=== PATIENT | female | born 1985 | race Caucasian/White ===

== ENCOUNTER 2023-09-28 20:21 | Observation (INO) | payer OTHER, SELFPAY ==
[2023-09-28 20:49] VITALS: BP 118/76; PULSE 96
[2023-09-28 20:55] VITALS: TEMP 37
[2023-09-28 21:00] VITALS: BP 119/70; PULSE 90
[2023-09-28 21:07] LABS: Appearance Urine Cloudy (Clear); Bacteria Urine 2+ /hpf; Bilirubin Urine Negative (Negative); Blood Urine Negative (Negative); Color Urine Yellow (Yellow); Glucose Urine UA 1+ mg/dL (Negative); Ketones Urine 2+ mg/dL (Negative); Leukocyte Esterase Ur Trace LEU/UL (Negative); Nitrate Urine Negative (Negative); Non Pathogenic Casts 0-2; Protein Urine Negative (Negative); RBC Urine 0-2 /hpf (0-2); Specific Grav Ur 1.013 (1.001-1.035); Squamous Epithelial Cell Urine Few /hpf (Few); Urobilinogen Urine 0.2 mg/dL (<2.0); pH Urine 5.5 (5.0-9.0)
[2023-09-28 21:08] LABS: Add Urine Microscopic? YES
[2023-09-28 21:15] VITALS: BP 118/77; PULSE 94
[2023-09-28 21:30] VITALS: BP 120/75; PULSE 93
[2023-09-28 21:34] VITALS: BMI 30.4
--- NOTE | 2023-09-28 21:34 | OBADM ---
This patient, Alejo Rosario, admitted to the OB room [facility] Post [facility] for observation. Patient/family oriented to hospital policies and general routines including ID bracelet, bed and alarms, visiting hours, pain management, procedures, bathroom and other care routines, personal items, smoking policy, room service/diet, and visiting hours. Patient/Family are encouraged to report perceived risks to care and to ask questions if they do not understand what they are told or what they should do.
[2023-09-28 21:45] VITALS: BP 103/62; PULSE 97
[2023-09-28] MEDS: NITROFURANTOIN MONOHYD MACROCR 100 MG CAP PO (21:50)
--- NOTE | 2023-09-28 23:52 | PC.NURSE ---
2152 BASELINE 135, MODERATE VARIABILITY, +ACCELS, NO DECELS UTERINE IRRITABILITY NOTED.
--- NOTE | 2023-10-21 10:14 | PM.OBTRLD ---
OB - Triage/Final Diagnosis Visit Information Comments/Additional reasons for admission: I have assessed the risk for this patient, Alejo Rosario, and determined that she would benefit from observation care. Evaluation Laboratory results: Laboratory Tests 09/28/23 20:51 Urine Color Yellow Urine Appearance Cloudy H Urine pH 5.5 Ur Specific Jackman 1.013 Urine Protein Negative Urine Glucose (UA) 1+ H Urine Ketones 2+ H Ur Blood (Man) Negative Urine Nitrate Negative Urine Bilirubin Negative Urine Urobilinogen 0.2 Leukocyte Esterase Rfl Trace H Urine RBC 0-2 Urine WBC 11-20 H Ur Squamous Epith Cells Few Urine Bacteria 2+ H Urine Casts 0-2 Final Diagnosis (1) Abdominal pain: Code(s): R10.9 - Unspecified abdominal pain Status: Acute
== END 2023-09-28 21:56 ==
PROVIDERS: Admitting Provider Obstetrics & Gynecology; PCP Internal Medicine; Visit Provider Obstetrics & Gynecology
DX: O26.893 Other specified pregnancy related conditions, third trimester (principal); R10.9 Unspecified abdominal pain; Z3A.33 33 weeks gestation of pregnancy
CPT/HCPCS: 81001; 87086; A9270; G0378; G0379

== ENCOUNTER 2023-10-13 07:12 | Inpatient (IN) | payer OTHER, SELFPAY ==
[2023-10-13] VITALS (185 sets, daily range): BP systolic 71–127; BP diastolic 26–91; PULSE 51–164; RESP 16–18; TEMP 36.4–36.9; O2SAT 95–100; BMI 30.2
[2023-10-13] MEDS: AMPICILLIN 2 GM/NS 100 ML 2 GM/100 ML BAG IVPB (08:23)
[2023-10-13] MEDS: LACTATED RINGERS 1,000 ML 125 ML IV CONT ×2 (08:23→13:17)
[2023-10-13 08:37] LABS: Basophils Absolute Auto 0.1 K/mm3 (0.0-0.1); Basophils Percent Auto 0.8 % (0.2-1.2); Eosinophils Percent Auto 0.5 % (0-4.4); Hematocrit 40.5 % (37.0-47.0); Hemoglobin 12.9 g/dL (12.0-15.0); Immature Granulocyte Percent A 3.6 % (0-0.5); Lymphocytes Absolute Auto 1.16 K/mm3 (0.9-3.2); Lymphocytes Percent Auto 13.9 % (18.3-44.2); Mean Corpuscular HGB Conc 31.9 g/dl (32-36); Mean Corpuscular Hemoglobin 29.1 pg (26-34); Mean Corpuscular Volume 91.4 fl (80-100); Mean Platelet Volume 10.8 fl (7.4-10.4); Monocytes Absolute Auto 0.6 K/mm3 (0.1-0.6); Monocytes Percent Auto 7.7 % (2.6-8.5); Neutrophils Absolute Auto 6.2 K/mm3 (1.3-6.7); Neutrophils Percent Auto 73.5 % (45.5-73.1); Platelet Count Result 154 k/mm3 (150-375); Red Blood Count 4.43 M/mm3 (4.2-5.4); Red Cell Distribution Width 15.3 % (11.5-14.5); White Blood Count 8.4 K/mm3 (4.5-10.0)
--- NOTE | 2023-10-13 09:03 | LDADM ---
This patient, Alejo Rosario, was admitted to Labor/Delivery/Recovery 105 on 10/13/23 at 07:12. Plans for labor, pain management and were discussed with patient. Patient/family oriented to hospital policies and general routines including ID bracelet, bed and alarms, visiting hours, pain management, procedures, bathroom and other care routines, personal items, smoking policy, room service/diet and guest tray routines, infant security routines, and visiting hours. Patient/Family are encouraged to report perceived risks to care and to ask questions if they do not understand what they are told or what they should do. See OBIX for further documentation.
[2023-10-13] MEDS: miSOPROStol 25 MCG TABLET 50 MCG PO (09:15)
--- NOTE | 2023-10-13 09:33 | P.HP_ITS ---
H&P: HPI History of Present Illness Date/Time: 10/13/23 09:33 Chief Complaint: pt arrived this am to Labor after PPROM at 35.5 weeks gestation, clear fluid. This is an IVF , complicated by GDMA-2. and is managed with 13 units of NPH at . has been complicated by HSV, velamentous insertion of the umbilical cord,uterine fibroids. Pt is comfortable and has no current complaints Review of Systems Review of Systems: All systems reviewed & are unremarkable except as noted in HPI and below [facility] Family History Family History (Updated 10/13/23 @ 09:24 by Casandra Singleton RN) Other No pertinent family history in first degree relatives Social History Social History Do You Feel Safe in your Home?: Yes Lack of Transportation: No Lack of Food: Never True Current Housing: I Have Housing Concerned About Future Housing: No Difficulty Paying Gas/Electric Bills: No Difficulty Paying for Meds: No Currently Unemployed: No Education: High School Diploma/GED Difficulty w/ Childcare or Family Care: No Meds Home Medications and Allergies Home Medications Medication Instructions Recorded Confirmed Type nitrofurantoin 100 mg PO Q12H #14 caps 09/28/23 Rx monohydrate/macrocrystals 100 mg capsule (Macrobid) Allergies Allergy/AdvReac Type Severity Reaction Status Date / Time No Known Allergies Allergy Verified 09/28/23 21:32 Vital Signs Vital Signs - 24 hr 10/13/23 07:42 10/13/23 08:11 10/13/23 08:30 Pulse Rate 88 97 92 Blood Pressure 117/76 106/71 100/67 Oxygen Delivery 10/13/23 09:00 10/13/23 09:18 10/13/23 09:30 Pulse Rate 102 H 98 92 Blood Pressure 127/72 107/78 116/72 Oxygen Delivery 10/13/23 09:03 Pulse Rate Blood Pressure Oxygen Delivery Room Air Exam Const: General: cooperative and healthy appearing Resp: Effort & Inspection: normal respiratory effort Cardio: Rate: regular rate GI: Other: gravid/soft Skin: General skin exam: normal color Neuro: General: patient oriented x3 Psych: Appearance: grossly normal H&P: Results Labs Labs: Short CBC 10/13/23 Range/Units 08:11 WBC 8.4 (4.5-10.0) K/mm3 Hgb 12.9 (12.0-15.0) g/dL Hct 40.5 (37.0-47.0) % Plt Count 154 (150-375) k/mm3 Assessment and Plan Assessment and plan (1) Gestational diabetes: Code(s): O24.419 - Gestational diabetes mellitus in , unspecified control Status: Acute (2) In vitro fertilization: Code(s): Z31.83 - Encounter for assisted reproductive fertility procedure cycle Status: Acute (3) Uterine leiomyoma: Code(s): D25.9 - Leiomyoma of uterus, unspecified Status: Acute Plan 35.5 weeks gestation PPROM Velamentous insertion of the umbilical cord GDMA-2 HSV co-managing patient with Dr. Weeks, proceed with augmentation, anticipate vaginal delivery
[2023-10-13] MEDS: BETAMETHASONE SOD PHOS/ACETATE 30 MG/5 ML VIAL 12 MG IM (11:57)
[2023-10-13] MEDS: AMPICILLIN 1 GM/NS 50 ML 1 GM/50 ML BAG IVPB ×3 (12:00→20:03)
[2023-10-13 13:54] LABS: Glucose Point of Care 101 mg/dl (65-105)
[2023-10-13 13:54] LABS: Glucose Point of Care 104 mg/dl (65-105)
[2023-10-13 13:54] LABS: Glucose Point of Care 107 mg/dl (65-105)
[2023-10-13] MEDS: PHENYLEPHRINE 1,000 MCG/10 ML SYRINGE 100 MCG IV PUSH ×2 (14:43→14:50)
[2023-10-13] MEDS: OXYTOCIN 30 UNITS/NS 500 ML 30 UNITS/500 ML BAG IV CONT (15:30)
[2023-10-13 18:04] LABS: Glucose Point of Care 96 mg/dl (65-105)
[2023-10-13 19:36] LABS: Glucose Point of Care 134 mg/dl (65-105)
[2023-10-13] MEDS: SODIUM CHLORIDE 0.9% IV 300 ML 600 ML I-UTERINE (20:46)
[2023-10-13 21:30] LABS: Glucose Point of Care 115 mg/dl (65-105)
[2023-10-13] MEDS: ONDANSETRON INJ 4 MG/2 ML VIAL IV PUSH (21:52)
[2023-10-14] VITALS (33 sets, daily range): BP systolic 96–118; BP diastolic 51–90; PULSE 32–129; RESP 16–20; TEMP 36.3–37.1; O2SAT 85–100
--- NOTE | 2023-10-14 01:47 | PM.OBPRVD ---
OB - Vaginal Delivery Note Procedure Delivery date: 10/14/23 Events: Gestational Diabetes and Other (PPROM) Induction method: Per Misoprostol Protocol and Per Pitocin Protocol Delivery monitor: External FHT and Internal Uterine Route of delivery: Episiotomy description: None Laceration Description: Perineal - 2nd Degree Delivery repair: vicryl Specimen: Yes Quantitative Blood Loss (ml): 200 Anesthesia type: Epidural Disposition: Floor Complications: No immediate complications Baby Date of : 10/14/23 Time of : 01:28 Weeks of gestation at delivery: 35 Infant gender: Male Weight (pounds): 6 Weight (ounces): 0 presentation: vertex position: Left Occiput Anterior Placenta delivery description: Spontaneous Cord Vessel Description: 3 Vessels and Delayed Cord Clamping score one minute: 8 score five minutes: 9 Narrative: after 30 sec delayed cord clamping, cord cut and baby handed to chief analytics officer for evaluation, mother and baby in stable condition
[2023-10-14] MEDS: OXYTOCIN 30 UNITS/NS 500 ML 30 UNITS/500 ML BAG 125 UNITS IV CONT (02:00)
[2023-10-14] MEDS: IBUPROFEN 600 MG TABLET PO ×2 (02:06→15:33)
[2023-10-14 02:18] LABS: Glucose Point of Care 115 mg/dl (65-105)
[2023-10-14] MEDS: diphenhydrAMINE HCl CAP 25 MG CAPSULE PO (03:03)
[2023-10-14] MEDS: BENZOCAINE 20% AER SPR (*SP) 56 GM CAN 1 SPRAY TOPICAL (03:44)
[2023-10-14] MEDS: WITCH HAZEL 40 PADS 1 PAD TOPICAL (03:44)
--- NOTE | 2023-10-14 09:26 | PC.NURSE ---
[id number] Introductions were made, then consulted with patient to assess needs related to . Mother led the conversation with her?plans to feed?her infant and the?experience so far. Encouraged understanding of the benefits of skin to skin (demonstrating unwrapping and placing upright on her chest), stimulating with massage touch, changing positions to encourage wakefulness, how to watch for early feeding cues, responsive feeding, feeding on demand (aiming for 8-12 times in 24 hours, about every 2-3 hours), milk production, hand expression, building/maintaining a milk supply, duration of feeding, signs of adequate intake/output and how to record on the feeding sheet. Mother works well with her infant with encouragement. is sleepy and not demonstrating feeding cues. Mother shared she has had breast implants and there are healed incisions under each breast. There is a scar at the 6 oclock area of the left breast going from the areola down to the chest wall approximately 1 inch long from a lumpectomy. Reviewed comfort measures of healing with a warm, wet washcloth to rinse breast, then leave open to air-dry, good handwashing when or touching the breast/nipples to prevent infection. Mother demonstrated understanding of hand expression and finger fed drops of colostrum to her . Mother voiced understanding of skin to skin, stimulating with massage touch, responsive feedings, hand expressed colostrum, talking to to encourage if it has been 2 -2.5 hours since the start of the last , to call if infant does not latch, or if there is discomfort with and stated fed is best . Mother will continue with attempting to breastfeed for 15 min along with hand expression, pumping and bottle feeding. Resources used for education were facilitated with the visual educational handouts/ tool/mom and baby guide. Inpatient/outpatient resources provided with feeding sheet, name written on the communication board, and the mom/baby guide. Mother voiced understanding of information, demonstrated learning and will call if there is a request for assistance. Reported to the Primary RN.
[2023-10-14] MEDS: DOCUSATE SODIUM 100 MG CAPSULE PO (09:43)
[2023-10-14] MEDS: MULTIVIT/MIN/PREN/FOL AC/IRON TABLET 1 TAB PO (09:43)
[2023-10-14] MEDS: diphenhydrAMINE HCl CAP 25 MG CAPSULE (15:49)
[2023-10-14 16:45] LABS: Rapid Plasma Reagin Non-Reactive (NonReactive)
[2023-10-15] MEDS: IBUPROFEN 600 MG TABLET PO ×2 (03:18→09:56)
[2023-10-15 04:11] LABS: Hematocrit 33.9 % (37.0-47.0); Hemoglobin 10.9 g/dL (12.0-15.0)
[2023-10-15 07:45] VITALS: BP 109/59; PULSE 88; RESP 16; TEMP 36.4; O2SAT 100
--- NOTE | 2023-10-15 09:08 | WPDANLDPN2 ---
Anes-Prog Note L&D Date/Time: 10/15/23 09:08 Comfortable throughout: labor and delivery Neuraxial method: epidural Epidural/Spinal procedure site: clean & non-tender Neuro status: Neuro function grossly intact. Cardiovascular status: normal Respiratory status: normal Airway patency: baseline Mental status: baseline Post-Op hydration status: normal Vital Signs: Last Vital Signs Temp 36.4 C 10/15/23 07:45 Pulse 88 10/15/23 07:45 Resp 16 10/15/23 07:45 BP 109/59 L 10/15/23 07:45 Pulse Ox 100 10/15/23 07:45 O2 Del Method Room Air 10/14/23 07:45 Pain score (VAS): 2/10 Post-procedural complaints: none Patient feedback: Patient satisfied with anesthetic care.
[2023-10-15] MEDS: MULTIVIT/MIN/PREN/FOL AC/IRON TABLET 1 TAB PO (09:57)
[2023-10-15] MEDS: DOCUSATE SODIUM 100 MG CAPSULE PO (09:57)
[2023-10-15] MEDS: DIPHENHYDRAMINE 1%/ZINC 0.1% CREAM 30 GM TUBE 1 APPLIC TOPICAL ×2 (10:56→21:00)
[2023-10-15] MEDS: HYDROCORTISONE 1% 30 GM CREAM 1 APPLIC TOPICAL (10:56)
--- NOTE | 2023-10-15 12:07 | PC.NURSE ---
[id number] Reported this AM mother is mostly bottle feeding. Purposefully rounded to assess for needs. Mother shared she has only pumped once in the last 24 hours. Infant is cuddled up on parents chest [id number]. Reminded mother to protect her milk supply with consistent milk removal and nipple stretching/stimulation for adequate milk production every 3 hours (8 times in 24 hours) 1-2 times at night. Mother is encouraged to record the pumping schedule on the feeding sheet.?Mother voiced understanding of the education shared along with mom/baby guide along with adding there's no pain with pumping. Mother voiced understanding of how and when to call for services. Mother shared she is not too concerned and is doing a go with the flow attitude with her and feeding plan. Infant is being supplemented with formula and EBM when available. Discussed expectations of the milk production and mother voiced understanding. Reported to the Primary RN.
[2023-10-15 18:50] VITALS: BP 118/81; PULSE 91; RESP 18; TEMP 36.4; O2SAT 100
[2023-10-16] MEDS: ACETAMINOPHEN 325 MG TABLET 650 MG PO (01:03)
--- NOTE | 2023-10-16 07:26 | PM.OBPNVD ---
OB - PN: Subj Subjective Date/time seen: 10/16/23 07:26 Interval history: pp day 2 doing well pain well managed flatus present OB - PN: Obj Data Labs 10/15/23 03:13 OB - PN A/P Plan day: 2 Plan: routine care and discharge home Time Spent With Patient Time: Total time spent is greater than 50% in coordination of care (as documented) at patient's floor/unit and/or counseling patient: Review of Systems Review of Systems: All systems reviewed & are unremarkable except as noted in HPI and below Exam Const: General: cooperative and healthy appearing Resp: Effort & Inspection: normal respiratory effort Cardio: Rate: regular rate Skin: General skin exam: normal color Extrem: Right lower extremity: normal to inspection Left lower extremity: normal to inspection Psych: Appearance: grossly normal
--- NOTE | 2023-10-16 07:29 | P.DS_ITS ---
DS: Admitting Diagnosis Discharge Date 10/16/23 Admitting Diagnosis PPROM DS: Discharge Diagnosis Discharge Diagnosis (1) Vaginal delivery: Code(s): O80 - Encounter for full-term uncomplicated delivery Status: Acute OB - DS: Summary OB Procedures : None OB Procedures Intrapartum: Spontaneous Vag Delivery OB Procedures: : None Peripartum Data Laceration Description: Perineal - 2nd Degree Episiotomy description: None Time Spent with Patient Time attestation: Total time spent providing and/or coordinating discharge services: DS: Data Data Completed and Pending Pending studies at discharge: Pending at discharge 10/14/23 02:50 Surgical [PTH] Routine Discharge Plan Discharge Attending physician on discharge: Josh Weeks Discharging Clinician: Lisa Abdullahi Patient Disposition: Home, Self-Care Activity: pelvic rest Diet: regular Patient Instructions: Antibiotic Form Stand Alone Forms: General Discharge Information Follow-up/Referrals: Lisa Abdullahi, CNM [Certified Nurse Quantitative Developer] - 4 Weeks Discharge Medications: New ibuprofen 600 mg Tablet 600 mg PO Q6H PRN (Reason: Cramping) Qty: 30 0RF Continued PNV cmb#95-ferrous fumarate-FA [] 28 mg iron- 800 mcg Tablet 1 tablet PO DAILY Discontinued insulin glargine [Lantus U-100 Insulin] 100 unit/mL Solution 13 unit SUBCUT HS magnesium 250 mg Tablet 250 mg PO HS Date of admission: 10/13/23 07:12 Primary Care Provider: Meredith,Quang Admitting Provider: Josh Weeks Attending physician on admission: Josh Weeks Condition: Stable
[2023-10-16 08:00] VITALS: BP 99/66; PULSE 86; RESP 16; TEMP 36.6; O2SAT 86
[2023-10-16] MEDS: MULTIVIT/MIN/PREN/FOL AC/IRON TABLET 1 TAB PO (08:26)
[2023-10-16] MEDS: IBUPROFEN 600 MG TABLET PO ×2 (08:26→15:52)
[2023-10-16] MEDS: WITCH HAZEL 40 PADS 1 PAD TOPICAL (08:27)
[2023-10-16] MEDS: HYDROCORTISONE 1% 30 GM CREAM 1 APPLIC TOPICAL ×2 (08:28→15:54)
--- NOTE | 2023-10-16 10:09 | PC.NURSE ---
[id number] Purposefully rounded to assess for needs. Mother continues to be confident in her plan to pump and formula feed her infant at this phase. Mother shared she expressed 5mls of milk for her to eat, she practices [id number] often and is encouraged to call for services while inpatient. has had appropriate feedings in the last 24 hours meets the outcomes for weight, output, blood sugar and jaundice at this time. Reinforced understanding of milk production, transition of milk, signs of adequate intake, transition of stool, prevention/relief of engorgement, plugged ducts, mastitis, responsive watching for feeding cues, the different methods of stimulating infant to breastfeed 1-3 hours after the start of the last feeding, community resources, and when to call a provider using the resource of the feeding sheet along with the mom and baby guide. We reviewed what to expect with milk production in the next few days. Mother voiced understanding of the information shared, is confident to continue feed her infant at home denies any additional assistance or education at this time. Reported to the Primary RN.
[2023-10-16] MEDS: DOCUSATE SODIUM 100 MG CAPSULE PO (15:53)
[2023-10-18 09:18] VITALS: BP 116/74; PULSE 79; RESP 18; TEMP 36.7; O2SAT 100
== END 2023-10-16 18:21 | disposition home or self-care (01) | DRG 807 ==
LOC: ANHLDR 07:32 → ANHOB2 10-14 03:59
PROVIDERS: Admitting Provider Obstetrics & Gynecology; PCP Internal Medicine; Referring Provider Advanced Practice Midwife; Visit Provider Obstetrics & Gynecology
DX: O60.14X0 Preterm labor third trimester with preterm delivery third trimester, not applicable or unspecified (principal); Z37.0 Single live birth; O70.1 Second degree perineal laceration during delivery; O43.123 Velamentous insertion of umbilical cord, third trimester; O24.424 Gestational diabetes mellitus in childbirth, insulin controlled; O34.13 Maternal care for benign tumor of corpus uteri, third trimester; D25.9 Leiomyoma of uterus, unspecified; Z3A.35 35 weeks gestation of pregnancy
CPT/HCPCS: 36415; 82948; 84112; 85014; 85018; 85025; 86592; 86850; 86900; 86901; 88307; A9270; J0290; J0702; J2371; J2405; J2590; J2795; J7030; J7120